=== PATIENT | male | born 1960 ===

== ENCOUNTER 2018-02-19 23:45 | Observation (INO) ==
[2018-02-20] MEDS ORDERED: POTASSIUM CHLORIDE 20 MEQ TABLET PO PRN (02:07)
[2018-02-20] MEDS ORDERED: ONDANSETRON 4 MG/2 ML VIAL IV PRN (02:07)
[2018-02-20] MEDS ORDERED: ENOXAPARIN 40 MG/0.4 ML SYRINGE SUBCUT SCH (02:30)
[2018-02-20] MEDS ORDERED: GLUCAGON 1 MG VIAL IM PRN (02:47)
[2018-02-20] MEDS ORDERED: DEXTROSE 50% 25 GM/50 ML VIAL IV PRN (02:47)
[2018-02-20 04:15] LABS: Risk Ratio 2.69; VLDL CHOLESTEROL 17.2 MG/DL
[2018-02-20] MEDS: PANTOPRAZOLE 40 MG TABLET PO SCH (08:21)
[2018-02-20] MEDS: INSULIN REGULAR 100 UNIT/ML SUBCUT SCH ×4 (08:22→20:37)
[2018-02-20] MEDS: ASPIRIN EC 325 MG TABLET PO SCH (08:22)
[2018-02-21] MEDS: INSULIN REGULAR 100 UNIT/ML SUBCUT SCH ×2 (08:08→11:55)
[2018-02-21] MEDS: ASPIRIN EC 325 MG TABLET PO SCH (08:08)
[2018-02-21] MEDS: PANTOPRAZOLE 40 MG TABLET PO SCH (08:08)
[2018-02-21 12:12] VITALS: BP 129/73
== END 2018-02-21 14:14 | disposition home or self-care (01) ==
LOC: N.TELES → SUATTDRO 02-20 01:12
PROVIDERS: ADMIT Internal Medicine; ATTEND Internal Medicine Nephrology